=== PATIENT | female | born 1995 | race Hispanic/Latino ===

== ENCOUNTER 2017-08-29 18:46 | Emergency (ER) | payer MEDICAID ==
[2017-08-29] MEDS ORDERED: HYOSCYAMINE SULFATE 0.125 MG TAB.SUBL SL ONE (19:31)
[2017-08-29] MEDS ORDERED: ONDANSETRON ODT 4 MG TAB ONE (19:31)
[2017-08-29 19:50] LABS: APPEARANCE,URINE Clear (CLEAR); BILIRUBIN,URINE Negative (NEGATIVE); COLOR,URINE Dark Yellow (YELLOW); GLUCOSE, URINE (UA) Negative (NEGATIVE); KETONES,URINE Negative (NEGATIVE); LEUKOCYTE ESTERASE ,URINE Trace (NEGATIVE); NITRATE,URINE Negative (NEGATIVE); OCCULT BLOOD,URINE Negative (NEGATIVE); PROTEIN,URINE POS 1+ (NEGATIVE)
[2017-08-29 19:58] LABS: HCG,QUAL RESULT NEGATIVE (NEGATIVE)
[2017-08-29 20:28] LABS: RBC,URINE 0-1 /HPF (0-1)
[2017-08-29 20:29] LABS: BACTERIA,URINE Few /HPF (None Seen); MUCUS,URINE Moderate LPF (None Seen); SQUAMOUS EPITHELIAL CELL,UR Few /LPF (0-2)
== END 2017-08-29 22:20 | disposition home or self-care (01) ==
LOC: EDH 18:46
DX: R10.9 Unspecified abdominal pain (principal); R11.2 Nausea with vomiting, unspecified; R19.7 Diarrhea, unspecified; Z90.49 Acquired absence of other specified parts of digestive tract
CPT/HCPCS: 81001; 81025

== ENCOUNTER 2018-12-03 18:41 | Emergency (ER) | payer MEDICAID ==
[2018-12-03 19:59] LABS: RAPID GROUP A STREP NEGATIVE (NEGATIVE)
[2018-12-03] MEDS ORDERED: KETOROLAC TROMETHAMINE 60 MG/2 ML VIAL ONE (20:40)
[2018-12-03] MEDS ORDERED: ACETAMINOPHEN 325 MG TAB ONE (20:40)
[2018-12-03] MEDS ORDERED: ONDANSETRON ODT 4 MG TAB ONE (20:40)
== END 2018-12-03 21:07 | disposition home or self-care (01) ==
LOC: EDH 18:41
DX: B34.9 Viral infection, unspecified (principal); Z90.49 Acquired absence of other specified parts of digestive tract
CPT/HCPCS: 81025; 87804 ×2; 87880; 96372; 99284; J1885

== ENCOUNTER 2020-09-02 14:17 | Emergency (ER) | payer MEDICAID ==
[2020-09-02] MEDS ORDERED: 0.9%NACL 1000ML 1,000 ML IV ONE (14:44)
[2020-09-02] MEDS ORDERED: ONDANSETRON 4MG INJ ONE (14:52)
[2020-09-02 15:15] LABS: BASOPHILS % (AUTO) 0.2 % (0.0-5.0); EOSINOPHILS % (AUTO) 0.2 % (0.0-8.0); LYMPHOCYTES % (AUTO) 5.3 % (21.0-51.0); MEAN CORPUSCULAR HEMOGLOBIN 28.2 pg (27.0-33.0); MEAN CORPUSCULAR HGB CONC 32.7 g/dL (32.0-36.0); MEAN CORPUSCULAR VOLUME 86.3 fL (79-99); MONOCYTES % (AUTO) 2.5 % (3.0-13.0); NEUTROPHILS % (AUTO) 91.3 % (40.0-77.0); PLATELET COUNT (AUTO) 317 K/uL (130-400); RED CELL DISTRIBUTION WIDTH 13.4 % (11.0-15.5); WHITE BLOOD COUNT (AUTO) 17.6 K/uL (4.8-10.8)
[2020-09-02 15:22] LABS: APPEARANCE,URINE Clear (CLEAR); BILIRUBIN,URINE Negative (NEGATIVE); COLOR,URINE Yellow (YELLOW); GLUCOSE, URINE (UA) Negative (NEGATIVE); KETONES,URINE Negative (NEGATIVE); LEUKOCYTE ESTERASE ,URINE Trace (NEGATIVE); NITRATE,URINE Negative (NEGATIVE); OCCULT BLOOD,URINE Negative (NEGATIVE); PH,URINE 5.5 (5.0-8.0); PROTEIN,URINE Negative (NEGATIVE); UROBILINOGEN,URINE 0.2 mg/dL (0.2-1.0)
[2020-09-02 15:23] LABS: CREATININE 0.8 mg/dL (0.5-1.5); POTASSIUM 4.2 mmol/L (3.5-5.1)
[2020-09-02 15:27] LABS: ALBUMIN 4.1 g/dL (3.5-5.0); BILIRUBIN,TOTAL 0.7 mg/dL (0.2-1.0); TOTAL PROTEIN, SERUM 8.6 g/dL (6.0-8.3)
[2020-09-02 15:29] LABS: AMPHET/METH SCREEN,URINE NEGATIVE (NEGATIVE); BARBITURATE SCREEN, URINE NEGATIVE (NEGATIVE); BENZODIAZEPINES SCREEN,URINE NEGATIVE (NEGATIVE); CANNABINOID SCREEN,URINE POSITIVE (NEGATIVE); COCAINE SCREEN,URINE POSITIVE (NEGATIVE); OPIATE SCREEN,URINE NEGATIVE (NEGATIVE); PHENCYCLIDINE SCREEN,URINE NEGATIVE (NEGATIVE)
[2020-09-02 15:53] LABS: RBC,URINE 0-1 /HPF (0-1)
[2020-09-02 15:54] LABS: BACTERIA,URINE Few /HPF (None Seen); MUCUS,URINE Rare LPF (None Seen); SQUAMOUS EPITHELIAL CELL,UR Moderate /HPF (0-2)
[2020-09-02] MEDS ORDERED: ACETAMINOPHEN 500 MG TABLET ONE (17:10)
[2020-09-02] MEDS ORDERED: METOCLOPRAMIDE 10 MG/2 ML VIAL ONE (17:10)
== END 2020-09-02 17:48 | disposition home or self-care (01) ==
LOC: EDH 14:17
DX: R11.2 Nausea with vomiting, unspecified (principal); R51.9 Headache, unspecified; Z71.51 Drug abuse counseling and surveillance of drug abuser
CPT/HCPCS: 36415; 80053; 80305; 81001; 83690; 85025; 93005; 96361; 96374; 96375; 99284; J2405; J2765; J7030

== ENCOUNTER 2020-12-24 19:09 | Emergency (ER) | payer MEDICAID ==
[~2020-12-24] VITALS: Ht 149.9 cm; Wt 90.7 kg
[2020-12-24 21:00] VITALS: BP 146/73
[2020-12-24 21:10] LABS: BASOPHILS % (AUTO) 0.4 % (0.0-5.0); HEMATOCRIT 40.5 % (36-48); LYMPHOCYTES % (AUTO) 21.1 % (21.0-51.0); MEAN CORPUSCULAR HEMOGLOBIN 29.2 pg (27.0-33.0); MEAN CORPUSCULAR HGB CONC 33.3 g/dL (32.0-36.0); MEAN CORPUSCULAR VOLUME 87.7 fL (79-99); PLATELET COUNT (AUTO) 322 K/uL (130-400); RED BLOOD CELL COUNT(AUTO) 4.62 MIL/uL (4.00-5.50); RED CELL DISTRIBUTION WIDTH 13.2 % (11.0-15.5); WHITE BLOOD COUNT (AUTO) 12.6 K/uL (4.8-10.8)
[2020-12-24 21:16] LABS: APPEARANCE,URINE Cloudy (CLEAR); BILIRUBIN,URINE Negative (NEGATIVE); COLOR,URINE Yellow (YELLOW); GLUCOSE, URINE (UA) Negative (NEGATIVE); KETONES,URINE Negative (NEGATIVE); LEUKOCYTE ESTERASE ,URINE Moderate (NEGATIVE); NITRATE,URINE Negative (NEGATIVE); OCCULT BLOOD,URINE Negative (NEGATIVE); PH,URINE 5.5 (5.0-8.0); PROTEIN,URINE Trace mg/dL (NEGATIVE)
[2020-12-24 21:20] LABS: HCG,QUAL RESULT NEGATIVE (NEGATIVE)
[2020-12-24 21:21] LABS: INR 0.94 (0.85-1.15); PROTHROMBIN TIME 10.3 SEC (9.6-11.6)
[2020-12-24 21:23] LABS: BACTERIA,URINE Few /HPF (None Seen); MUCUS,URINE Rare LPF (None Seen); RBC,URINE 0-1 /HPF (0-1); SQUAMOUS EPITHELIAL CELL,UR Moderate /HPF (0-2)
[2020-12-24 21:23] LABS: CARBON DIOXIDE 28 mmol/L (21-32); CHLORIDE 103 mmol/L (101-111); CREATININE 0.8 mg/dL (0.5-1.5); GLOMERULAR FILTR. RATE CALC 94 mL/min (>60); GLUCOSE,RANDOM 93 mg/dL (70-105); PARTIAL THROMBOPLASTIN TIME 24.5 SEC (26.3-35.5); POTASSIUM 3.7 mmol/L (3.5-5.1); SODIUM SERUM 140 mmol/L (136-145); UREA NITROGEN, BLOOD 8 mg/dL (7-18)
[2020-12-24 21:24] LABS: AMPHET/METH SCREEN,URINE NEGATIVE (NEGATIVE); BARBITURATE SCREEN, URINE NEGATIVE (NEGATIVE); BENZODIAZEPINES SCREEN,URINE NEGATIVE (NEGATIVE); CANNABINOID SCREEN,URINE POSITIVE (NEGATIVE); COCAINE SCREEN,URINE POSITIVE (NEGATIVE); OPIATE SCREEN,URINE NEGATIVE (NEGATIVE); PHENCYCLIDINE SCREEN,URINE NEGATIVE (NEGATIVE)
[2020-12-24 21:27] LABS: ALANINE AMINOTRANSFERASE 92 U/L (12-78); ALBUMIN 3.7 g/dL (3.5-5.0); ALCOHOL, BLOOD < 3 mg/dL (0-10); ASPARTATE AMINOTRANSFERASE 23 U/L (10-37); BILIRUBIN,TOTAL 0.5 mg/dL (0.2-1.0); CREATINE KINASE, TOTAL 36 U/L (21-232); TOTAL PROTEIN, SERUM 7.8 g/dL (6.0-8.3)
[2020-12-24 23:12] VITALS: BP 123/74
== END 2020-12-24 23:13 | disposition home or self-care (01) ==
LOC: EDH 19:09
DX: R20.2 Paresthesia of skin (principal); H53.8 Other visual disturbances; R25.1 Tremor, unspecified; M54.2 Cervicalgia; F14.90 Cocaine use, unspecified, uncomplicated
CPT/HCPCS: 36415; 70450; 71045; 80053; 80305; 81001; 81025; 82550; 84484; 85025; 85610; 85730; 87088; 93005